=== PATIENT | female | born 1960 | race American Indian/Alaskan Native ===

== ENCOUNTER 2018-12-26 16:38 | Emergency (ER) | payer MEDICARE, OTHER ==
--- NOTE | 2018-12-26 18:12 | Event Note ---
ED Screening Note Date of service: 12/26/18 Time: 18:10 ED Screening Note: This is a 58 y.o. F. that presents to the ER with urinary frequency, dysuria, and hematuria x 1 day. PMH DM, HTN, and arthritis This initial assessment/diagnostic orders/clinical plan/treatment(s) is/are subject to change based on patients health status, clinical progression and re- assessment by fellow clinical providers in the ED. Further treatment and workup at subsequent clinical providers discretion. Patient/guardian urged not to elope from the ED as their condition may be serious if not clinically assessed and managed. Initial orders include: UA
[2018-12-26 18:56] LABS: Bilirubin,Urine NEG (Negative); Blood,Urine MOD (Negative); Color,Urine Yellow (Yellow); Mucus,Urine 1+ /HPF; Urobilinogen,Urine < 2.0 mg/dL (<2.0)
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
[2018-12-26 22:00] VITALS: BP 160/73
== END 2018-12-26 22:00 | disposition home or self-care (01) ==
LOC: ED 16:38
DX: N39.0 Urinary tract infection, site not specified (principal)
CPT/HCPCS: 81001